=== PATIENT | male | born 1980 | race African-American/Black ===

== ENCOUNTER 2018-02-06 09:45 | Emergency (ER) | payer MEDICAID ==
[~2018-02-06] VITALS: Ht 175.3 cm; Wt 60.5 kg
[~2018-02-06 09:45] MED LIST: CEPH250C2
[2018-02-06 09:50] VITALS: BP 107/69
== END 2018-02-06 11:01 | disposition home or self-care (01) ==
LOC: ER 10:43
DX: R59.0 Localized enlarged lymph nodes (principal); F17.200 Nicotine dependence, unspecified, uncomplicated; F12.10 Cannabis abuse, uncomplicated; Z88.2 Allergy status to sulfonamides
CPT/HCPCS: 87070; 87430; 99284

== ENCOUNTER 2019-05-10 07:31 | Emergency (ER) | payer SELFPAY ==
[~2019-05-10] VITALS: Ht 177.8 cm; Wt 64.0 kg
[2019-05-10 10:28] LABS: BASOPHILS % 0.7 % (0.0-2.0); EOSINOPHILS % 3.6 % (0.0-5.0); HEMATOCRIT. 41.9 % (42.0-52.0); MEAN CORPUSCULAR HEMOGLOBIN 29.3 pg (28.0-32.0); MEAN CORPUSCULAR VOLUME 87.6 fL (80.0-94.0); MEAN PLATELET VOLUME 6.6 fl (7.4-10.4); MONOCYTES % 6.6 % (2.0-8.0); NEUTROPHILS % 39.1 % (40.0-76.0); PLATELET 273 x1000/uL (130-400); RED BLOOD CELL COUNT 4.78 mill/uL (4.7-6.1); RED CELL DISTRIBUTION WIDTH 13.5 % (11.6-14.6)
[2019-05-10 10:34] LABS: CHLORIDE 106 mEq/L (98-107)
[2019-05-10 11:49] VITALS: BP 115/87
== END 2019-05-10 11:49 | disposition home or self-care (01) ==
LOC: ER 07:31
DX: S50.02XA Contusion of left elbow, initial encounter (principal); F12.10 Cannabis abuse, uncomplicated; Z90.89 Acquired absence of other organs; W22.8XXA Striking against or struck by other objects, initial encounter; Y93.89 Activity, other specified; Y92.89 Other specified places as the place of occurrence of the external cause; Y99.8 Other external cause status
CPT/HCPCS: 36415; 80048; 99283